=== PATIENT | male | born 1985 | race Caucasian/White ===

== ENCOUNTER 2017-03-05 16:59 | Inpatient (IN) | payer OTHER ==
[~2017-03-05] VITALS: Ht 167.6 cm; Wt 61.7 kg
--- NOTE | 2017-03-05 17:10 | NUR ---
PT TO ED FOR C/C OF DARK URINE, NAUSEA, VOMITING. DENIES ABD PAIN. 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 DENIES FEVERS.
--- NOTE | 2017-03-05 18:24 | ED GI/GU/ABDOMINAL COMPLAINT ---
History of Present Illness General Chief Complaint: General Adult Stated Complaint: PT URINE IS DARK BROWN ,BACK OF LEG FEEL HOT Source: patient Exam Limitations: no limitations Vital Signs & Intake/Output Vital Signs & Intake/Output Vital Signs Date Time Temp Pulse Resp B/P B/P Pulse O2 O2 Flow FiO2 Mean Ox Delivery Rate 03/10 0035 174/100 03/10 0012 174/100 03/09 2241 98.9 63 20 172/100 96 Room Air 03/09 2155 160/100 03/09 1452 98.0 71 18 116/60 96 03/09 0644 98.0 78 18 151/93 99 Room Air ED Intake and Output 03/10 0000 03/09 1200 Intake Total 1600 1250 Output Total 1600 2300 Balance 0 -1050 Intake, IV 1100 800 Intake, Oral 500 450 Output, Urine 1600 2300 Patient 145 lb Weight Weight Standing Scale Measurement Method Allergies Coded Allergies: No Known Allergies (03/05/17) Triage Note: PT TO ED FOR C/C OF DARK URINE, NAUSEA, VOMITING. DENIES ABD PAIN. 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 DENIES FEVERS. Triage Nurses Notes Reviewed? yes HPI: Shaka is a 32 yo m with a significant past medical history presenting to the ED today for dark urine and leg pain. 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 He was out from 5 AM -3pm. He only drank 1 ice tea the entire day. He felt quite thirsty later but did not get an opportunity to get water. At home patient noted he had increased muscle cramps and leg pain. Today it worsened significantly and he noted that he had some very dark brown urine. Patient denies any fever or chills, chest pain, cough, shortness of breath, abdominal pain, nausea, vomiting or diarrhea. Patient denies any falls or trauma to his legs. (TRESSA MATHEW,SARKIS) Reconcile Medications Methadone Hydrochloride (Methadone HCl) 10 MG TABLET 9 TAB PO DAILY OPIATE dose (Reported) (JEF MATHEW,KRISTAN) Past History Travel History Traveled to [place] past 21 day No Medical History Any Pertinent Medical History? 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 No (SARKIS BUSTILLOS MD) Review of Systems Review of Systems Constitutional: Reports: no symptoms. EENTM: Reports: no symptoms. Respiratory: Reports: no symptoms. Cardiovascular: Reports: no symptoms. GI: Reports: no symptoms. Genitourinary: Reports: see HPI. Musculoskeletal: Reports: muscle pain. Skin: Reports: no symptoms. Neurological/Psychological: Reports: no symptoms. Hematologic/Endocrine: Reports: no symptoms. Immunologic/Allergic: Reports: no symptoms. All Other Systems: Reviewed and Negative (SARKIS BUSTILLOS MD) Physical Exam Physical Exam General Appearance: well developed/nourished, no apparent distress, alert, awake , comfortable Head: atraumatic, normal appearance Eyes: Bilateral: normal appearance, PERRL, EOMI, normal inspection. 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 No Severe Sepsis Present: No Septic Shock Present: No (SARKIS BUSTILLOS MD) Progress Differential Diagnosis: ureterolithiasis, urinary retention, urethritis, UTI/ pyelo, rhabdomyolysis, EBONI, electrolyte derangement Plan of Care: Orders Procedure Date/time Status CREATINE PHOSPHOKINASE 03/10 06 Active BASIC ELECTROLYTES PLUS BUN&CR 03/10 0600 Active MAGNESIUM 03/09 0630 Complete CALCIUM 03/09 0630 Complete Lab Add-on Test 03/09 UNK Active Nursing Misc 03/09 UNK Active EKG 03/09 UNK Active Current Medications Sig/Brian Start time Last Medication Dose Stop Time Status Admin Methadone HCl 90 MG DAILY 03/10 1000 UNVr (Dolophine) Potassium Chloride 20 MEQ Q10H 03/09 1145 r 03/10 (KCl 20MEQ in NS 0037 1000ML) Sodium Chloride 1,000 ML (Normal Saline 0.9%) Nicotine 21 MG 2100 03/07 2100 AC 03/09 (Nicoderm) 2106 Polyethylene Glycol 17 GM DAILY 03/06 1000 AC (Miralax) Heparin Sodium 5,000 UNIT Q8 03/06 0600 AC (Porcine) Ondansetron HCl 4 MG Q6P PRN 03/05 2230 AC 03/08 (Zofran) 2032 Oxycodone HCl 5 MG Q6P PRN 03/05 223 AC (Roxicodone) Oxycodone HCl 10 MG Q6P PRN 03/05 2230 AC 03/09 (Roxicodone) 2150 Laboratory Tests 03/09/17 0630: Anion Gap 9, Estimated GFR > 60, BUN/Creatinine Ratio 5.0 L, Calcium 9.1, Magnesium 1.5 L, Creatine Kinase 14008 H Patient is an otherwise well-appearing 32-year-old male presenting to the ED for dark urine and muscle cramps and bilateral legs. No trauma to the legs. Patient was outside in the sun with decreased hydration and now has dark urine. Likely rhabdomyolysis and concerned for acute kidney injury given the dark urination. Patient unable to provide sample at this point in time. Plan to obtain basic blood work and give 2 L of fluid then reassess. After 2 L of fluid, the patient was able to provide a urine sample. Urine is dark brown in color to visual inspection. Plan to send down to the lab for evaluation. Add-on CK was also obtained. Labs significant for several electrolyte derangements. Potassium is within normal limits. CK noted to be above 28,000. Creatinine is 4.9 which is significantly abnormal for this otherwise healthy 32-year-old male. Plan to give 2 more liters of fluid and admitted to the hospital for rhabdomyolysis with EBONI. Patient given morphine for the pain. Patient amenable to admission. Would like to go outside and smoke, however he was offered a nicotine patch which he lightly accepted. (SARKIS BUSTILLOS MD) Initial ED EKG: none (SARKIS BUSTILLOS MD) Departure Departure Time of Disposition: 2104 Disposition: STILL A PATIENT Condition: Stable Clinical Impression Primary Impression: Acute renal failure Qualifiers: Acute renal failure type: unspecified Qualified Code: N17.9 - Acute kidney failure, unspecified Secondary Impressions: Rhabdomyolysis Qualifiers: Rhabdomyolysis type: non-traumatic Qualified Code: M62.82 - Rhabdomyolysis Ruled Out Impressions: EBONI (acute kidney injury) Referrals: PATIENT HAS NO PRIMARY CARE DR (PCP/Family) Departure Forms: Customer Survey General Discharge Information Admission Note Spoke With: CEDRIC BERNSTEIN MD Documentation of Exam: Documentation of any treatments & extenuating circumstances including Concerns Regarding Discharge (functional status, medication knowledge or non-compliance, living conditions, etc.) that warrant an admission rather than observation: This patient requires inpatient hospitalization as he has a new acute kidney failure with several electrolyte derangements. If this patient were discharged at home, his electrolyte derangements could worsen, causing a severe cardiac arrhythmia or even . His kidney failure could worsen causing permanent damage and leading to dialysis. This would result in increasing morbidity and mortality therefore, it is in the best interest of the patient and his healthcare to be admitted for IV hydration and repeat blood work. (SARKIS BUSTILLOS MD) Resident Co-Sign Statement Statement: ED Attending supervision documentation- [] I saw and evaluated the patient. I have also reviewed all the pertinent lab results and diagnostic results. I agree with the findings and the plan of care as documented in the Resident's documentation. [X] I have reviewed the ED Record and agree with the Resident's documentation. [] Additions or exceptions (if any) to the Resident's note and plan are summarized below: [] (JEF MATHEW,KRISTAN) Labs significant for several electrolyte derangements. Potassium is within normal limits. CK noted to be above 28,000. Creatinine is 4.9 which is significantly abnormal for this otherwise healthy 32-year-old male. Plan to give 2 more liters of fluid and admitted to the hospital for rhabdomyolysis with EBONI. Patient given morphine for the pain. Patient amenable to admission. Would like to go outside and smoke, however he was offered a nicotine patch which he lightly accepted. (SARKIS BUSTILLOS MD) Initial ED EKG: none Departure Departure Time of Disposition: 2104 Disposition: STILL A PATIENT Condition: Stable Clinical Impression Primary Impression: Acute renal failure Qualifiers: Acute renal failure type: unspecified Qualified Code: N17.9 - Acute kidney failure, unspecified Secondary Impressions: Rhabdomyolysis Qualifiers: Rhabdomyolysis type: non-traumatic Qualified Code: M62.82 - Rhabdomyolysis Ruled Out Impressions: EBONI (acute kidney injury) Referrals: PATIENT HAS NO PRIMARY CARE DR (PCP/Family) Departure Forms: Customer Survey General Discharge Information Prescriptions: Current Visit Scripts No Known Home Medications Admission Note Spoke With: CEDRIC BERNSTEIN MD Documentation of Exam: Documentation of any treatments & extenuating circumstances including Concerns Regarding Discharge (functional status, medication knowledge or non-compliance, living conditions, etc.) that warrant an admission rather than observation: This patient requires inpatient hospitalization as he has a new acute kidney failure with several electrolyte derangements. If this patient were discharged at home, his electrolyte derangements could worsen, causing a severe cardiac arrhythmia or even . His kidney failure could worsen causing permanent damage and leading to dialysis. This would result in increasing morbidity and mortality therefore, it is in the best interest of the patient and his healthcare to be admitted for IV hydration and repeat blood work.
--- NOTE | 2017-03-05 19:08 | NUR ---
LAV & GOLD TOP TUBES SENT TO LAB
[2017-03-05 19:33] LABS: ABSOLUTE BASOPHIL COUNT 0.1 /CUMM (0.0-0.2); ABSOLUTE EOSINOPHIL COUNT 0.1 /CUMM (0.0-0.7); ABSOLUTE GRANULOCYTE CT 12.1 /CUMM (1.4-6.5); ABSOLUTE LYMPH COUNT 2.2 /CUMM (1.2-3.4); BASOPHIL % 0.4 % (0.0-2.0); EOSINOPHIL % 0.5 % (0-5); HEMATOCRIT 51.5 % (42-52); MEAN CORPUSCULAR HGB 30.8 PG (27.0-31.0); MEAN CORPUSCULAR HGB CONC 33.3 G/DL (33.0-37.0); MEAN CORPUSCULAR VOLUME 92.3 FL (80.0-94.0); MEAN PLATELET VOLUME 8.7 FL (7.4-10.4); PLATELET COUNT 230 /CUMM (130-400); RBC DISTRIBUTION WIDTH 13.6 % (11.5-14.5); RED BLOOD CELL CT 5.57 /CUMM (4.70-6.10); WHITE BLOOD CELL COUNT 15.5 /CUMM (4.8-10.8)
[2017-03-05 19:39] LABS: GRANULOCYTE % 78.1 % (42.2-75.2)
--- NOTE | 2017-03-05 20:20 | NUR ---
URINE TRIO SENT TO LAB.
--- NOTE | 2017-03-05 21:00 | NUR ---
PATIENT RESTING QUIETLY IN THE HALLWAY. IVF CONTINUE.
--- NOTE | 2017-03-05 22:01 | History & Physical ---
WENDY MATHEW,[facility] 03/05/17 2159: General Information and HPI MD Statement: I have seen and personally examined TRAVIS MACEDO and documented this H&P. The patient is a 32 year old M who presented with a patient stated chief complaint of dark urine. Source of Information: patient Exam Limitations: no limitations History of Present Illness: Mr. Macedo is a 32 y/o M with no significant PMHx who presents with nausea, vomiting, weakness, dark urine and bilateral leg pain. 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 Prior to the onset of symptoms he had been working in the heat with little fluid intake for several hours. He came home to rest and could not leave the bed until his current presentation to the ED. He has had multiple episodes of nonbloody nonbilious emesis and has not been able to hold anything. He has been feeling weak during this time and his bilateral thighs have been painful. He noted dark urine, decrease in his urinary output and some dysuria as well. ROS is also positive for abdominal pain which he attributes to the emesis. He denies fever, chills, chest pain, shortness of breath. He denies similar episodes in the past. Patient is healthy and does not take any medications. He admits to smoking 4-5 cigarettes per day and marijuana use every other day. 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 Psychosocial History Where do you live? Home Primary Language: Pashto Smoking Status: Current Everyday Smoker (4-5 Cigarettes Daily, Since 14) ETOH Use: denies use Illicit Drug Use: marijuana Functional Ability ADLs Independent: dressing, eating, toileting, bathing. Ambulation: independent IADLs Independent: shopping, housework, finances, food prep, telephone, transportation , medication admin. Employment History Employment Employed Profession/Employer [employer] Review of Systems Review of Systems Constitutional: Reports: weakness. Denies: chills, fever. EENTM: Reports: no symptoms. Cardiovascular: Reports: no symptoms. Denies: chest pain. Respiratory: Reports: no symptoms. Denies: short of breath. GI: Reports: abdominal pain, nausea, vomiting. Genitourinary: Reports: see HPI (dark urine and decreased UOP), dysuria. Musculoskeletal: Reports: muscle pain. Skin: Reports: no symptoms. Neurological/Psychological: Reports: no symptoms. Hematologic/Endocrine: Reports: no symptoms. Immunologic/Allergic: Reports: no symptoms. All Other Systems: Reviewed and Negative Exam & Diagnostic Data Last 24 Hrs of Vital Signs/I&O Vital Signs Date Time Temp Pulse Resp B/P B/P Pulse O2 O2 Flow FiO2 Mean Ox Delivery Rate 03/05 2226 94 20 130/77 100 Room Air 03/05 1707 98.9 104 15 121/93 95 Room Air Room Air Intake & Output 03/06 0800 03/06 0000 03/05 1600 Intake Total 6050 Output Total Balance 6050 Intake, IV 6050 Patient 61.235 kg Weight Weight Reported by Patient Measurement Method Physical Exam General Appearance Alert, Oriented X3, No Acute Distress Skin No Rashes HEENT Atraumatic, Mucous Membr. moist/pink Neck Supple Cardiovascular Regular Rate, Normal S1, Normal S2, No Murmurs, Gallops, Rubs Lungs Clear to Auscultation Abdomen Soft, No Tenderness, Positive Bowel Sounds Neurological Bilateral Lower Extremities with 5/5 Strength Extremities No Clubbing, No Cyanosis, No Edema, Bilateral Thighs Tender to Touch , No Swelling or Inflammation Last 24 Hrs of Labs/Luke: Laboratory Tests 03/05/17 2003: Urine Color YEL, Urine Clarity CLEAR, Urine pH 5.5, Ur Specific Watson 1.020, Urine Protein 100 H, Urine Ketones TRACE H, Urine Nitrite NEG, Urine Bilirubin NEG@ICTO, Urine Urobilinogen 1.0, Ur Leukocyte Esterase NEG, Ur Microscopic SEDIMENT EXAMINED, Urine RBC 3-5, Urine WBC 5-10 H, Ur Epithelial Cells FEW, Urine Bacteria MANY H, Hyaline Casts 1-3 H, Granular Casts 5-10 H, Urine Hemoglobin LARGE H, Urine Glucose NEG 03/05/172002: Urine Opiates Screen < 100.00, Methadone Screen > 735 H, Barbiturate Screen < 60, Ur Phencyclidine Scrn 6.60, Amphetamines Screen < 100, U Benzodiazepines Scrn > 800 H, Urine Cocaine Screen < 50, Urine Cannabis Screen > 80.00 H, Urine Osmolality 231 L, Ur Random Creatinine 292.0, Ur Random Sodium 26 L, Ur Random Potassium 31.6, Fraction Sodium Excret 0.3 03/05/174: Anion Gap 20 H, Estimated GFR 14 L, BUN/Creatinine Ratio 6.5 L, Glucose 97, Serum Osmolality 288, Calcium 10.3 H, Total Bilirubin 1.4 H, Direct Bilirubin 0.6 H, AST 682 H, ALT 140 H, Alkaline Phosphatase 87, Creatine Kinase 00445 H, Total Protein 8.9 H, Albumin 5.5 H, Globulin 3.4, Albumin/Globulin Ratio 1.6, CBC w Diff NO MAN DIFF REQ, RBC 5.57, MCV 92.3, MCH 30.8, RDW 13.6, MPV 8.7 , Gran % 78.1 H, Lymphocytes % 14.3 L, Monocytes % 6.7, Eosinophils % 0.5, Basophils % 0.4, Absolute Granulocytes 12.1 H, Absolute Lymphocytes 2.2, Absolute Monocytes 1.0 H, Absolute Eosinophils 0.1, Absolute Basophils 0.1, PUBS MCHC 33.3, Hepatitis A IgM Ab Pending, Hep Bs Antigen Pending, Hep B Core IgM Ab Conf Pending, Hepatitis C Antibody Pending, Acetaminophen < 10.0 L Assessment/Plan Assessment: Mr. Macedo is a 32 y/o M with no significant PMHx who presents with nausea, vomiting, weakness, dark urine and bilateral leg pain. #Rhabdomyolysis: Marked elevation in CPK (77113), dark urine, leg tenderness/ weakness and large hemoglobin in the urine consistent with rhabdomyolysis. Inciting factor is likely physical exertion in the heat with little fluid intake. No stigmata of dermatomyositis appreciable on exam. S/p 1 L bolus of NS x5. * Admit to General Medicine. * Continue aggressive IV hydration with NS @ 200 cc/hr. * Zofran 4 mg IV Q6H PRN for nausea/vomiting. * Repeat CPK in the AM. * Strict I/Os. #EBONI: BUN/Cr 32/4.9 on admission. Likely secondary to rhabdomyolysis. * Continue aggressive IV hydration. * Repeat BMP in the AM. * If kidney function does not improve, consider further workup including renal US to rule out obstruction. #Transaminitis: AST/ALT 682/140 on admission. Total bilirubin and direct bilirubin slightly elevated as well, 1.4 and 0.6 respectively. Alkaline phosphatase WNL. Likely secondary to rhabdomyolysis. * Check Tylenol level and hepatitis panel to rule out other causes of transaminitis. * Repeat LFTs in the AM. #Nicotine dependence: * Nicotine patch 21 mg administered. Diet: Regular Pain: Oxycodone 10 mg PO Q6H PRN for severe pain (scale 7-10) Oxycodone 5 mg PO Q6H PRN for moderate pain (scale 4-6) DVT PPx: HSQ and ALPs CODE: FULL As Ranked By This Provider Problem List: 1. Rhabdomyolysis Qualifiers Rhabdomyolysis type: non-traumatic Qualified Code: M62.82 - Rhabdomyolysis 2. EBONI (acute kidney injury) 3. Transaminitis 4. Nicotine dependence Core Measures/Miscellaneous Acute Coronary Syndrome ACS Diagnosis: No Cerebrovascular Accident CVA/TIA Diagnosis: No Congestive Heart Failure CHF Diagnosis: No VTE (View Protocol) VTE Risk Factors: Acute medical illness, Smoking [facility] prophylaxis d/t: No contraindications No VTE Pharm Prophylaxis d/t: No contraindications VTE Diagnosis: No VTE Type: NONE VTE Confirmed by (Test): NONE Sepsis (View Protocol) Severe Sepsis Present: No Septic Shock Septic Shock Present: No Miscellaneous Documentation Attending Case Discussed With: CEDRIC BERNSTEIN MD Primary Care Physician: PATIENT HAS NO PRIMARY CARE DR Patient sees these Specialists None Level of Patient Care: General Medicine DEYVI SAL 03/05/17 2250: Resident Review Statement Resident Statement: examined this patient, discussed with summer internship, agreed with summer internship, amended to note Other Findings: Patient denies any fever or chills, he reports mild burning sensation especially when he was passing small amount of concentrated brown urine, he has no chest pain palpitation or shortness of breath, he reports mild abdominal wall tenderness due to heaving. On arrival the patient was afebrile 98.9 tachycardic at 104, respiration of 15 blood pressure 121/93 and saturating 95% on room air Physical examination showed a patient who is seated comfortably on the bed as late oriented time place and person were present not in any acute distress Chest clear lungs bilaterally, heart normal S1-S2 no murmurs, abdomen normal contour moving with respiration no any palpable mass, extremities no edema cyanosis or clubbing he has tenderness on the hamstrings bilaterally, she has no pseudomyositis stigmata. 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 He has tenderness on the muscles and has no stigmata suggestive of pseudomyositis. In the ER the patient received 5 L fluid boluses and reported to start passing large amount of urine. Rhabdomyolysis Acute kidney injury Hyponatremia Transaminitis Polysubstance abuse Admit patient to general medicine floor Continue with fluid at 200 mL per hour Repeat electrolytes,LFTs and CPK a.m. Strict I&O's Start regular diet Zofran 4 mg every 6 when necessary for nausea Avoid nephrotoxic medications Patient is full code Pain management CEDRIC BERNSTEIN 03/06/17 0231: Attending MD Review Statement Attending Statement Attending MD Statement: examined this patient, discuss w/resident/PA/IT TECHNICIAN, agreed w/resident/PA/IT TECHNICIAN, reviewed EMR data (avail), reviewed images, amended to note Attending Assessment/Plan: CC: Dark-colored urine, leg pain PMH: None Patient works in [place], he has been working long hours on Friday and Friday, he developed severe pain in his legs on Friday, felt very sick so he took off went home and rested but he had severe nausea, vomiting 6 times, nonbloody, nonbilious and then noticed dark colored urine. He also noticed pain in his thighs left more than right. He did not have much fluid intake while working. He admits occasional use of marijuana and use of Xanax last week. Vitals: Afebrile, pulse 104, RR 15, blood pressure 121/93, saturating well on room air. On examination: A O 3, cooperative, no acute distress, neck supple, JVD normal, no lymphadenopathy, mucosa dry, no focal neurological deficit, thighs tender to touch, swelling or inflammation, no dependent edema, no obvious skin rashes or inflammation CVS: S1-S2, RRR. RS: Clear to auscultate bilaterally. Abdomen: Soft , NT, ND, bowel sounds present. Labs: WBC 15.5, neutrophils 78%, hemoglobin 17.1, bicarbonate 23, BUN 32, creatinine 4.9, calcium 10.3, bilirubin 1.4, AST 682, ALT 140, alkaline phosphatase 87, CK 28,634, total protein 8.9, albumin 5.5, UA positive for ketones. A and P 32-year-old male with no significant past medical history came to ER after working outside in hot weather for long hours, without adequate hydration. He comes with dark-colored urine and pain in thighs. + Rhabdomyolysis + Acute kidney injury secondary to rhabdomyolysis and dehydration + Dehydration + Transaminitis + Reactive leukocytosis - Admit to general medicine - Continue aggressive hydration with normal saline - Check Tylenol level, viral hepatitis panel - Adequate pain control with opiates - DVT prophylaxis with heparin - Repeat CBC, BMP, LFT, CPK in a.m. - Strict I's and O's
--- NOTE | 2017-03-05 23:29 | NUR ---
REPORT TO CHARLIE MARR
--- NOTE | 2017-03-06 00:08 | NUR ---
ASSUMED CARE OF PT == AWAITING GEN MED BED. PER PT AND EMAR LITER #6 INFUSING AT 200ML/HR TAKING ICE CHIPS PO.
--- NOTE | 2017-03-06 01:11 | NUR ---
REPORT CALLED TO RN
[2017-03-06 01:30] VITALS: BP 120/78
--- NOTE | 2017-03-06 02:35 | Admission Certification ---
Admission Certification Certification Statement - As attending physician, I certify that at the time of - admission, based on clinical presentation, severity of - symptoms, need for further diagnostic testing and - therapeutic interventions, and risk of adverse outcomes - without in-hospital treatment, in my clinical assessment, - this patient requires an acute hospital stay for a minimum - of two nights or longer. I have also considered psychsocial - factors such as support system, advanced age, financial - issues, cognitive issues, and failed out-patient treatments, - past re-admission history, safety of patient, and lack of - compliance as applicable. Specific rationale supporting this admission is: rhabdomyolysis and acute kidney injury
[2017-03-06 07:12] VITALS: BP 118/82
--- NOTE | 2017-03-06 07:46 | PN- Housestaff ---
Subjective Follow-up For: Rhabdomyolysis Acute kidney injury Transaminitis Methadone, cannibase and benzo abuse Subjective: Patient was seen and examined this morning, alert, no acute distress. Patient denied any shortness of breath, chest pain, palpitation. Denied abdominal pain. Reported some nausea, will try to eat breakfast. Reported bilateral thigh pain. Review of Systems Constitutional: Reports: see HPI. Objective Last 24 Hrs of Vital Signs/I&O Vital Signs Date Time Temp Pulse Resp B/P B/P Pulse O2 O2 Flow FiO2 Mean Ox Delivery Rate 03/06 1429 98.1 81 20 122/70 95 Room Air 03/06 0712 98.0 97 20 118/82 99 Room Air 03/06 0130 98.2 93 20 120/78 99 Room Air 03/05 2226 94 20 130/77 100 Room Air 03/05 1707 98.9 104 15 121/93 95 Room Air Room Air Intake & Output 03/06 1600 03/06 0800 03/06 0000 Intake Total 1800 1000 6050 Output Total 700 Balance 1100 1000 6050 Intake, IV 1600 1000 6050 Intake, Oral 200 Number 0 Bowel Movements Output, Urine 700 Patient 65.317 kg 61.235 kg Weight Weight Reported by Patient Reported by Patient Measurement Method Physical Exam General Appearance: Alert, Oriented X3, Cooperative, No Acute Distress Skin: No Rashes, No Breakdown, No Significant Lesion Skin Temp/Moisture Exam: Warm/Dry HEENT: Atraumatic, PERRLA, EOMI, Mucous Membr. moist/pink Neck: Supple Cardiovascular: Regular Rate, Normal S1, Normal S2, No Murmurs Lungs: Clear to Auscultation, Normal Air Movement Abdomen: Normal Bowel Sounds, Soft, bilateral upper quadrant abdominal tenderness Neurological: Normal Gait, Normal Speech, Strength at 5/5 X4 Ext, Normal Tone, Sensation Intact, Cranial Nerves 3-12 NL, Reflexes 2+ Extremities: No Clubbing, No Cyanosis, No Edema, Normal Pulses, No Tenderness/ Swelling, tenderness over bilateral thigh Assessment/Plan Assessment: Mr. Durham is a 32 y/o M with no significant PMHx who presented with nausea, vomiting, weakness and dark urine. #Rhabdomyolysis: Marked elevation in CPK (27010), dark urine, leg tenderness/ weakness and large hemoglobin in the urine consistent with rhabdomyolysis. Inciting factor is likely physical exertion in the heat with little fluid intake. No stigmata of dermatomyositis appreciable on exam. S/p 1 L bolus of NS x5. * Continue IV hydration with NS @ 200 cc/hr. * Repeated CPK this morning is elevated, will recheck CPK in the afternoon if continue to rise will consider compartment pressure measurement to rule out compartment syndrome as patient has bilateral thigh pain and tenderness. * Zofran 4 mg IV Q6H PRN for nausea/vomiting. #EBONI: BUN/Cr 32/4.9 on admission. Likely secondary to rhabdomyolysis. * Continue aggressive IV hydration. * Improved significantly with IV hydration 16/1.3 #Transaminitis: AST/ALT 682/140 on admission. Total bilirubin and direct bilirubin slightly elevated as well, 1.4 and 0.6 respectively. Alkaline phosphatase WNL. Likely secondary to rhabdomyolysis. * Urine toxicology positive for benzo, Cannabis, methadone. Negative for acetaminophen * GI consultation was obtained, recommendation to follow daily liver function test * Recommendation to further walk up increased liver function test as an outpatient if it persistently elevated after resolution of CPK * Will obtain abdominal ultrasound #Nicotine dependence: * Nicotine patch 21 mg #Methadone dependence * Methadone dose of 90 mg daily confirmed via [facility] Diet: Regular Pain: Oxycodone 10 mg PO Q6H PRN for severe pain (scale 7-10) Oxycodone 5 mg PO Q6H PRN for moderate pain (scale 4-6) DVT PPx: HSQ and ALPs CODE: FULL Problem List: 1. Rhabdomyolysis 2. EBONI (acute kidney injury) 3. Transaminitis 4. Nicotine dependence 5. Acute renal failure Pain Ratin Pain Location: Bilateral thigh pain and tenderness Pain Goal: Pain 4 or less Pain Plan: Moderate to severe pain pathway Tomorrow's Labs & Rationales: BMP, LFT, CPK
--- NOTE | 2017-03-06 07:58 | NUR ---
NURSING NOTE: PT REPORTS TO THIS RN "I TAKE 90MG OF METHADONE DAILY, MY LAST DOSE WAS FRIDAY, I WENT YESTERDAY BUT I WAS SO DEHYDRATD THAT I COULDNT PEE TO GIVE THEM A SAMPLE. I GO TO THE CLINIC in [place]," faisal pandey called and made aware.
[2017-03-06 08:44] LABS: ABSOLUTE BASOPHIL COUNT 0 /CUMM (0.0-0.2); ABSOLUTE EOSINOPHIL COUNT 0 /CUMM (0.0-0.7); MEAN PLATELET VOLUME 9.4 FL (7.4-10.4); RBC DISTRIBUTION WIDTH 14.3 % (11.5-14.5); WHITE BLOOD CELL COUNT 8.5 /CUMM (4.8-10.8)
--- NOTE | 2017-03-06 08:45 | Event Note ---
Event Note Event Note: we contacted [facility] nad confirmed the Methadone dose of 90 mg daily. Last dose was given at 03/04/2017.
[2017-03-06 09:12] LABS: ABSOLUTE GRANULOCYTE CT 5.5 /CUMM (1.4-6.5); ABSOLUTE LYMPH COUNT 2.3 /CUMM (1.2-3.4); ABSOLUTE MONOCYTE COUNT 0.7 /CUMM (0.10-0.60); BASOPHIL % 0.3 % (0.0-2.0); EOSINOPHIL % 0.5 % (0-5); GRANULOCYTE % 64.5 % (42.2-75.2); MEAN CORPUSCULAR HGB 31.4 PG (27.0-31.0); MEAN CORPUSCULAR HGB CONC 33.7 G/DL (33.0-37.0); MEAN CORPUSCULAR VOLUME 93.1 FL (80.0-94.0); PLATELET COUNT 153 /CUMM (130-400); RED BLOOD CELL CT 4.28 /CUMM (4.70-6.10)
[2017-03-06 09:28] LABS: HEMATOCRIT 39.9 % (42-52)
--- NOTE | 2017-03-06 10:29 | NUR ---
NURSING NOTE: PT HAD A FEW BITES OF A VILLA, EGG AND CHEESE SANDWICH FROM HOME AROUND 0930AM; ABDOMINAL US ORDERED BY MD PT TO BE NPO UNTIL AFTER US AT 1500PM. PT UPDATED AND AWARE, NPO SIGN PLACED ABOVE BED.
--- NOTE | 2017-03-06 13:28 | PN- Att Addend ---
Attending Addendum Attending Brief Note Patient seen and examined, overall feeling better. Denies any pain in the lower extremities now. Creatinine improved but CK was still high. Vital Signs Date Time Temp Pulse Resp B/P B/P Pulse O2 O2 Flow FiO2 Mean Ox Delivery Rate 03/06 0712 98.0 97 20 118/82 99 Room Air 03/06 0130 98.2 93 20 120/78 99 Room Air 03/05 2226 94 20 130/77 100 Room Air 03/05 1707 98.9 104 15 121/93 95 Room Air Room Air on exam; aox3, nad. cv; s1, s2, rrr resp; clear abd; soft, tender in luq, bs+ ext; no edema. ms: no tenderness in le. Laboratory Tests 03/06 Chemistry Sodium (137 - 145 mmol/L) 142 Potassium (3.5 - 5.1 mmol/L) 3.7 Chloride (98 - 107 mmol/L) 112 H Carbon Dioxide (22 - 30 mmol/L) 21 L Anion Gap (5 - 16) 9 BUN (9 - 20 mg/dL) 16 Creatinine (0.7 - 1.2 mg/dL) 1.3 H Estimated GFR (>60 ml/min) > 60 BUN/Creatinine Ratio (7 - 25 %) 12.3 Total Bilirubin (0.2 - 1.3 mg/dL) 1.3 Direct Bilirubin (< 0.4 mg/dL) 0.4 AST (17 - 59 U/L) 872 H ALT (21 - 72 U/L) 183 H Alkaline Phosphatase (< 127 U/L) 54 Creatine Kinase (55 - 170 U/L) > 48045 H Total Protein (6.3 - 8.2 g/dL) 6.0 L Albumin (3.5 - 5.0 g/dL) 3.5 Hematology CBC w Diff NO MAN DIFF REQ WBC (4.8 - 10.8 /CUMM) 8.5 RBC (4.70 - 6.10 /CUMM) 4.28 L Hgb (14.0 - 18.0 G/DL) 13.4 L Hct (42 - 52 %) 39.9 L MCV (80.0 - 94.0 FL) 93.1 MCH (27.0 - 31.0 PG) 31.4 H RDW (11.5 - 14.5 %) 14.3 Plt Count (130 - 400 /CUMM) 153 MPV (7.4 - 10.4 FL) 9.4 Gran % (42.2 - 75.2 %) 64.5 Lymphocytes % (20.5 - 51.1 %) 26.7 Monocytes % (1.7 - 9.3 %) 8.0 Eosinophils % (0 - 5 %) 0.5 Basophils % (0.0 - 2.0 %) 0.3 Absolute Granulocytes (1.4 - 6.5 /CUMM) 5.5 Absolute Lymphocytes (1.2 - 3.4 /CUMM) 2.3 Absolute Monocytes (0.10 - 0.60 /CUMM) 0.7 H Absolute Eosinophils (0.0 - 0.7 /CUMM) 0 Absolute Basophils (0.0 - 0.2 /CUMM) 0 PUBS MCHC (33.0 - 37.0 G/DL) 33.7 Urines Urine Color (YEL,AMB,STR) YEL Urine Clarity (CLEAR) CLEAR Urine pH (5.0 - 8.0) 5.5 Ur Specific [place] (1.001 - 1.035) 1.020 Urine Protein (NEG,<30 MG/DL) 100 H Urine Ketones (NEG) TRACE H Urine Nitrite (NEG) NEG Urine Bilirubin (NEG) NEG@ICTO Urine Urobilinogen (0.1 - 1.0 EU/dl) 1.0 Ur Leukocyte Esterase (NEG) NEG Ur Microscopic SEDIMENT EXAMINED Urine RBC (0 - 5 /HPF) 3-5 Urine WBC (0 - 2 /HPF) 5-10 H Ur Epithelial Cells (NONE,FEW) FEW Urine Bacteria (NEG/NONE) MANY H Hyaline Casts (0/LPF) 1-3 H Granular Casts (NONE /LPF) 5-10 H Urine Hemoglobin (NEG) LARGE H Urine Glucose (N MG/DL) NEG 03/05 190 Chemistry Sodium (137 - 145 mmol/L) 136 L Potassium (3.5 - 5.1 mmol/L) 3.7 Chloride (98 - 107 mmol/L) 93 L Carbon Dioxide (22 - 30 mmol/L) 23 Anion Gap (5 - 16) 20 H BUN (9 - 20 mg/dL) 32 H Creatinine (0.7 - 1.2 mg/dL) 4.9 H Estimated GFR (>60 ml/min) 14 L BUN/Creatinine Ratio (7 - 25 %) 6.5 L Glucose (65 - 99 mg/dL) 97 Serum Osmolality (285 - 295 MOSM/KG) 288 Calcium (8.4 - 10.2 mg/dL) 10.3 H Total Bilirubin (0.2 - 1.3 mg/dL) 1.4 H Direct Bilirubin (< 0.4 mg/dL) 0.6 H AST (17 - 59 U/L) 682 H ALT (21 - 72 U/L) 140 H Alkaline Phosphatase (< 127 U/L) 87 Creatine Kinase (55 - 170 U/L) 37006 H Total Protein (6.3 - 8.2 g/dL) 8.9 H Albumin (3.5 - 5.0 g/dL) 5.5 H Globulin (1.9 - 4.2 gm/dL) 3.4 Albumin/Globulin Ratio (1.1 - 2.2 %) 1.6 Hematology CBC w Diff NO MAN DIFF REQ WBC (4.8 - 10.8 /CUMM) 15.5 H RBC (4.70 - 6.10 /CUMM) 5.57 Hgb (14.0 - 18.0 G/DL) 17.1 Hct (42 - 52 %) 51.5 MCV (80.0 - 94.0 FL) 92.3 MCH (27.0 - 31.0 PG) 30.8 RDW (11.5 - 14.5 %) 13.6 Plt Count (130 - 400 /CUMM) 230 MPV (7.4 - 10.4 FL) 8.7 Gran % (42.2 - 75.2 %) 78.1 H Lymphocytes % (20.5 - 51.1 %) 14.3 L Monocytes % (1.7 - 9.3 %) 6.7 Eosinophils % (0 - 5 %) 0.5 Basophils % (0.0 - 2.0 %) 0.4 Absolute Granulocytes (1.4 - 6.5 /CUMM) 12.1 H Absolute Lymphocytes (1.2 - 3.4 /CUMM) 2.2 Absolute Monocytes (0.10 - 0.60 /CUMM) 1.0 H Absolute Eosinophils (0.0 - 0.7 /CUMM) 0.1 Absolute Basophils (0.0 - 0.2 /CUMM) 0.1 PUBS MCHC (33.0 - 37.0 G/DL) 33.3 Serology Hepatitis A IgM Ab (NONREACTIVE) NONREACTIVE Hep Bs Antigen (NONREACTIVE) NONREACTIVE Hep B Core IgM Ab Conf (NONREACTIVE) NONREACTIVE Hepatitis C Antibody (NONREACTIVE) NONREACTIVE Toxicology Urine Opiates Screen (>2000 NG/ML) < 100.00 Methadone Screen (>300 NG/ML) > 735 H Acetaminophen (10.0 - 30.0 ug/mL) < 10.0 L Barbiturate Screen (>200 NG/ML) < 60 Ur Phencyclidine Scrn (>25 NG/ML) 6.60 Amphetamines Screen (>1000 NG/ML) < 100 U Benzodiazepines Scrn (>200 NG/ML) > 800 H Urine Cocaine Screen (>300 NG/ML) < 50 Urine Cannabis Screen (>50 NG/ML) > 80.00 H Urines Urine Osmolality (300 - 1000 MOSM/KG) 231 L Ur Random Creatinine (mg/dL) 292.0 Ur Random Sodium (30 - 90 mmol/L) 26 L Ur Random Potassium (mmol/L) 31.6 Fraction Sodium Excret (<1% %) 0.3 A/P; 32-year-old male with no significant past history who was admitted with acute renal failure, dehydration, rhabdomyolysis. Creatinine improved after IV hydration with CK remains elevated. Will repeat the levels later this often note and if remain high then we have to check compartment pressures for the lower extremities. Patient denies any pain currently. There is no history of any injury. Also he had abnormal LFTs which partly could be due to the rhabdomyolysis. Patient did complain of some abdominal pain and he's tender in the left upper quadrant. Will obtain abdominal ultrasound and GI will be consulted. Pt on chronic methadone. DVT px; hep sq.
--- NOTE | 2017-03-06 14:12 | Cons- Gastroenterology ---
General Information and HPI Consulting Request Date of Consult: 03/06/17 Requested By: CEDRIC BERNSTEIN MD Reason for Consult: Increased LFTs. Nausea and vomiting. Source of Information: patient Exam Limitations: no limitations History of Present Illness: Mr. Durham is a 32-year-old male with no significant previous medical history who presented to [facility] yesterday with complaints of nausea vomiting abdominal pain and was ultimately admitted with a diagnosis of rhabdomyolysis based on elevated CPK. The rhabdomyolysis has been attributed to extensive physical activity in the heat. He was found to have an elevated CPK of greater than 32,000 and he also had some renal insufficiency. For the past 1-2 days he has had some nausea associated with bilious vomiting. He has some abdominal discomfort from the retching, but he is without any significant abdominal pain with eating. He also denies any heartburn and he has not had any hematemesis. He notes that his urine has been dark, but his bowel movements have been normal and he has been without any júnior-colored stool, bright blood per rectum or melena. He was admitted to the medical service last night and aggressively hydrated and given antiemetics for his nausea and vomiting. He has not had any significant nausea or vomiting since being admitted to the hospital. Allergies/Medications Allergies: Coded Allergies: No Known Allergies (03/05/17) Home Med List: Methadone Hydrochloride (Methadone HCl) 10 MG TABLET 9 TAB PO DAILY OPIATE dose (Reported) Current Medications: Current Medications Sig/Brian Start time Last Medication Dose Route Stop Time Status Admin Heparin Sodium 5,000 UNIT Q8 03/06 0600 AC (Porcine) SC Methadone HCl 90 MG ONCE ONE 03/06 0900 DC 03/06 PO 03/06 0901 0919 Morphine Sulfate 6 MG ONCE ONE 03/05 2115 DC 03/05 IV 03/05 Morphine Sulfate 0 .STK-MED ONE 03/05 2113 DC .ROUTE Nicotine 0 .STK-MED ONE 03/05 2109 DC TOP Nicotine 21 MG DAILY 03/05 2059 AC 03/05 TOP 2110 Ondansetron HCl 4 MG Q6P PRN 03/05 2230 AC IV Ondansetron HCl 4 MG ONCE ONE 03/05 1945 DC 03/05 IV 03/05 Ondansetron HCl 0 .STK-MED ONE 03/05 1933 DC .ROUTE Oxycodone HCl 5 MG Q6P PRN 03/05 2230 AC PO Oxycodone HCl 10 MG Q6P PRN 03/05 2230 AC 03/06 PO 0750 Patient Medication 1 ED .STK-MED ONE 03/06 1411 DC Teaching ED 03/06 1412 Polyethylene Glycol 17 GM DAILY 03/06 1000 AC PO Sodium Chloride 1,000 ML Q6H 03/05 2215 AC 03/06 IV 1234 Sodium Chloride 1,000 ML BOLUS ONE 03/05 2115 DC 03/05 IV 03/05 2214 2110 Sodium Chloride 1,000 ML BOLUS ONE 03/05 2100 DC 03/05 IV 03/05 215 211 Sodium Chloride 1,000 ML BOLUS ONE 03/05 2000 DC 03/05 IV 03/05 Sodium Chloride 1,000 ML BOLUS ONE 03/05 1845 DC 03/05 IV 03/05 1944 185 Sodium Chloride 1,000 ML BOLUS ONE 03/05 1845 DC 03/05 IV 03/05 Past History Travel History Traveled to [place] past 21 day No Medical History Blood Transfusion Hx: No Neurological: NONE EENT: NONE Cardiovascular: NONE Respiratory: NONE Gastrointestinal: NONE Hepatic: NONE Renal: NONE Musculoskeletal: NONE Psychiatric: NONE Endocrine: NONE Blood Disorders: NONE Cancer(s): NONE 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 Psychosocial History Where Do You Live? Home Services at Home: None Primary Language: Cypriot Smoking Status: Current Everyday Smoker (4-5 Cigarettes Daily, Since ) ETOH Use: denies use Illicit Drug Use: marijuana Functional Ability ADLs Independent: dressing, eating, toileting, bathing. Ambulation: independent IADLs Independent: shopping, housework, finances, food prep, telephone, transportation , medication admin. Employment History Employment: Employed Profession/Employer: [employer] Review of Systems Review of Systems Constitutional: Reports: malaise, weakness. Denies: fever. EENTM: Denies: no symptoms. Cardiovascular: Denies: no symptoms. Respiratory: Denies: no symptoms. GI: Reports: see HPI. Genitourinary: Reports: see HPI (dark urine). Musculoskeletal: Reports: joint pain, muscle pain. Denies: muscle stiffness, neck pain. Skin: Denies: no symptoms. Neurological/Psychological: Denies: no symptoms. Hematologic/Endocrine: Denies: no symptoms. Immunologic/Allergic: Denies: no symptoms. All Other Systems: Reviewed and Negative Exam & Diagnostic Data Vital Signs and I&O Vital Signs Date Time Temp Pulse Resp B/P B/P Pulse O2 O2 Flow FiO2 Mean Ox Delivery Rate 03/06 712 98.0 97 20 118/82 99 Room Air 03/06 0130 98.2 93 20 120/78 99 Room Air 03/05 2226 94 20 130/77 100 Room Air 03/05 1707 98.9 104 15 121/93 95 Room Air Room Air Intake & Output 03/06 0400 03/05 0400 03/04 0400 Intake Total 1000 6050 Output Total Balance 1000 6050 Intake, IV 1000 6050 Patient 144 lb 137 lb Weight Weight Reported by Patient Measurement Method Physical Exam General Appearance: well developed/nourished, no apparent distress, alert, awake , comfortable Head: atraumatic, normal appearance Eyes: Bilateral: normal appearance. Ears, Nose, Throat: normal pharynx, normal ENT inspection Neck: normal inspection, supple, full range of motion Respiratory: normal breath sounds, chest non-tender, no respiratory distress Cardiovascular: regular rate/rhythm Gastrointestinal: normal bowel sounds, soft, non-tender, no organomegaly Back: normal inspection, normal range of motion Extremities: normal inspection, no edema Neurologic/Psych: no motor/sensory deficits, awake, alert, oriented x 3 Skin: intact, normal color, warm/dry Results Pertinent Lab Results: Laboratory Tests 03/06 Chemistry Sodium (137 - 145 mmol/L) 142 Potassium (3.5 - 5.1 mmol/L) 3.7 Chloride (98 - 107 mmol/L) 112 H Carbon Dioxide (22 - 30 mmol/L) 21 L Anion Gap (5 - 16) 9 BUN (9 - 20 mg/dL) 16 Creatinine (0.7 - 1.2 mg/dL) 1.3 H Estimated GFR (>60 ml/min) > 60 BUN/Creatinine Ratio (7 - 25 %) 12.3 Total Bilirubin (0.2 - 1.3 mg/dL) 1.3 Direct Bilirubin (< 0.4 mg/dL) 0.4 AST (17 - 59 U/L) 872 H ALT (21 - 72 U/L) 183 H Alkaline Phosphatase (< 127 U/L) 54 Creatine Kinase (55 - 170 U/L) > 34505 H Total Protein (6.3 - 8.2 g/dL) 6.0 L Albumin (3.5 - 5.0 g/dL) 3.5 Hematology CBC w Diff NO MAN DIFF REQ WBC (4.8 - 10.8 /CUMM) 8.5 RBC (4.70 - 6.10 /CUMM) 4.28 L Hgb (14.0 - 18.0 G/DL) 13.4 L Hct (42 - 52 %) 39.9 L MCV (80.0 - 94.0 FL) 93.1 MCH (27.0 - 31.0 PG) 31.4 H RDW (11.5 - 14.5 %) 14.3 Plt Count (130 - 400 /CUMM) 153 MPV (7.4 - 10.4 FL) 9.4 Gran % (42.2 - 75.2 %) 64.5 Lymphocytes % (20.5 - 51.1 %) 26.7 Monocytes % (1.7 - 9.3 %) 8.0 Eosinophils % (0 - 5 %) 0.5 Basophils % (0.0 - 2.0 %) 0.3 Absolute Granulocytes (1.4 - 6.5 /CUMM) 5.5 Absolute Lymphocytes (1.2 - 3.4 /CUMM) 2.3 Absolute Monocytes (0.10 - 0.60 /CUMM) 0.7 H Absolute Eosinophils (0.0 - 0.7 /CUMM) 0 Absolute Basophils (0.0 - 0.2 /CUMM) 0 PUBS MCHC (33.0 - 37.0 G/DL) 33.7 Urines Urine Color (YEL,AMB,STR) YEL Urine Clarity (CLEAR) CLEAR Urine pH (5.0 - 8.0) 5.5 Ur Specific [place] (1.001 - 1.035) 1.020 Urine Protein (NEG,<30 MG/DL) 100 H Urine Ketones (NEG) TRACE H Urine Nitrite (NEG) NEG Urine Bilirubin (NEG) NEG@ICTO Urine Urobilinogen (0.1 - 1.0 EU/dl) 1.0 Ur Leukocyte Esterase (NEG) NEG Ur Microscopic SEDIMENT EXAMINED Urine RBC (0 - 5 /HPF) 3-5 Urine WBC (0 - 2 /HPF) 5-10 H Ur Epithelial Cells (NONE,FEW) FEW Urine Bacteria (NEG/NONE) MANY H Hyaline Casts (0/LPF) 1-3 H Granular Casts (NONE /LPF) 5-10 H Urine Hemoglobin (NEG) LARGE H Urine Glucose (N MG/DL) NEG 03/05 Chemistry Sodium (137 - 145 mmol/L) 136 L Potassium (3.5 - 5.1 mmol/L) 3.7 Chloride (98 - 107 mmol/L) 93 L Carbon Dioxide (22 - 30 mmol/L) 23 Anion Gap (5 - 16) 20 H BUN (9 - 20 mg/dL) 32 H Creatinine (0.7 - 1.2 mg/dL) 4.9 H Estimated GFR (>60 ml/min) 14 L BUN/Creatinine Ratio (7 - 25 %) 6.5 L Glucose (65 - 99 mg/dL) 97 Serum Osmolality (285 - 295 MOSM/KG) 288 Calcium (8.4 - 10.2 mg/dL) 10.3 H Total Bilirubin (0.2 - 1.3 mg/dL) 1.4 H Direct Bilirubin (< 0.4 mg/dL) 0.6 H AST (17 - 59 U/L) 682 H ALT (21 - 72 U/L) 140 H Alkaline Phosphatase (< 127 U/L) 87 Creatine Kinase (55 - 170 U/L) 94145 H Total Protein (6.3 - 8.2 g/dL) 8.9 H Albumin (3.5 - 5.0 g/dL) 5.5 H Globulin (1.9 - 4.2 gm/dL) 3.4 Albumin/Globulin Ratio (1.1 - 2.2 %) 1.6 Hematology CBC w Diff NO MAN DIFF REQ WBC (4.8 - 10.8 /CUMM) 15.5 H RBC (4.70 - 6.10 /CUMM) 5.57 Hgb (14.0 - 18.0 G/DL) 17.1 Hct (42 - 52 %) 51.5 MCV (80.0 - 94.0 FL) 92.3 MCH (27.0 - 31.0 PG) 30.8 RDW (11.5 - 14.5 %) 13.6 Plt Count (130 - 400 /CUMM) 230 MPV (7.4 - 10.4 FL) 8.7 Gran % (42.2 - 75.2 %) 78.1 H Lymphocytes % (20.5 - 51.1 %) 14.3 L Monocytes % (1.7 - 9.3 %) 6.7 Eosinophils % (0 - 5 %) 0.5 Basophils % (0.0 - 2.0 %) 0.4 Absolute Granulocytes (1.4 - 6.5 /CUMM) 12.1 H Absolute Lymphocytes (1.2 - 3.4 /CUMM) 2.2 Absolute Monocytes (0.10 - 0.60 /CUMM) 1.0 H Absolute Eosinophils (0.0 - 0.7 /CUMM) 0.1 Absolute Basophils (0.0 - 0.2 /CUMM) 0.1 PUBS MCHC (33.0 - 37.0 G/DL) 33.3 Serology Hepatitis A IgM Ab (NONREACTIVE) NONREACTIVE Hep Bs Antigen (NONREACTIVE) NONREACTIVE Hep B Core IgM Ab Conf (NONREACTIVE) NONREACTIVE Hepatitis C Antibody (NONREACTIVE) NONREACTIVE Toxicology Urine Opiates Screen (>2000 NG/ML) < 100.00 Methadone Screen (>300 NG/ML) > 735 H Acetaminophen (10.0 - 30.0 ug/mL) < 10.0 L Barbiturate Screen (>200 NG/ML) < 60 Ur Phencyclidine Scrn (>25 NG/ML) 6.60 Amphetamines Screen (>1000 NG/ML) < 100 U Benzodiazepines Scrn (>200 NG/ML) > 800 H Urine Cocaine Screen (>300 NG/ML) < 50 Urine Cannabis Screen (>50 NG/ML) > 80.00 H Urines Urine Osmolality (300 - 1000 MOSM/KG) 231 L Ur Random Creatinine (mg/dL) 292.0 Ur Random Sodium (30 - 90 mmol/L) 26 L Ur Random Potassium (mmol/L) 31.6 Fraction Sodium Excret (<1% %) 0.3 Assessment/Plan Assessment/Recommendations: Assessment: Mr. 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 He has been noted to have a moderate transaminitis which is quite likely secondary to muscle as his alkaline phosphatase and bilirubin are not significantly elevated. He had a negative Tylenol level and a negative viral hepatitis profile and as there is an alternative explanation for his increased transaminases I do not feel that any further workup is indicated at this time for his liver unless his transaminases fail to improve with improvement in his CPK. He did have some nausea and vomiting in the days leading up to his admission, but the symptoms have now resolved and as he was without any hematemesis and did not feel that an endoscopy is necessary. Recommendations: 1. Hydration as per primary team. 2. Follow daily LFTs 3. Would consider further work up for his increased LFTs as an outpatient if they remain elevated with resolution of the CPK. 4. Administer anti-emetics as needed 5. Consideration will be given for a diagnostic EGD if his diet is not able to be advanced and/or if hematemesis ensues. Please re-contact GI for any acute GI issues while he is admitted. Consult Acknowledgment - Thank you for your consult request.
[2017-03-06 14:29] VITALS: BP 122/70
--- NOTE | 2017-03-06 15:10 | NUR ---
NURSING NOTE: PT LEFT FLOOR VIA WC FOR ABD US, PT NPO SINCE BREAKFAST, A/OX3, ROOM AIR, IVF PER MD ORDER, TICKET TO RIDE COMPLETE, CHART SENT WITH PT. DENIES PAIN, WILL GIVE REPORT TO NEXT SHIFT RN.
--- NOTE | 2017-03-06 16:32 | ULTRASOUND REPORT ---
EXAMINATION: US ABDOMEN LIMITED CLINICAL INFORMATION: Transaminitis secondary to rhabdomyolysis. Right upper quadrant and left upper quadrant abdominal tenderness. 32-year-old male patient. COMPARISON: None recent. TECHNIQUE: Real-time imaging of the right upper quadrant abdominal viscera. FINDINGS: PANCREAS: Visualized portions of pancreas are normal. LIVER: Normal. The liver demonstrates normal size, contour and mild increased echogenicity. No focal lesion or intrahepatic biliary duct dilatation. GALLBLADDER: Normal. The gallbladder is physiologically distended without evidence of stones, sludge, polyps, wall thickening or pericholecystic fluid. COMMON BILE DUCT: Normal in caliber measuring 0.6 cm in diameter. RIGHT KIDNEY: Normal. No hydronephrosis. No renal calculi or focal parenchymal lesions. The kidney measures 10.5 cm in maximum dimension. FREE FLUID: None. IMPRESSION: No evidence of biliary tract disease.
--- NOTE | 2017-03-06 18:29 | Event Note ---
Event Note Event Note: Luis E CPK from 3PM today is 47,515 per lab. This is increased from the morning lab. Patient was seen and evaluated. He states that the pain has improved significantly but reports it is still slightly tender to deep palpation in bilateral posterior thighs. Patient is otherwise neurologically intact with full strength and no sensation abnormalities in both legs. No trouble with ambulation. Pulse intact and no paresthesia. In concern for possible compartment syndrome in the setting of increasing CPK, however, vascular surgeon Dr. Campos was consulted. He advised that it is unlikely to be 2/2 compartment syndrome given the improvement in his pain and lack of neurological findings. Regardless, he will come and evaluate the patient himself in person tonight. Further recommendations to be followed. In the meantime, his IVF rate was increased from 200 to 300 cc/hr.
[2017-03-06 21:59] VITALS: BP 120/68
--- NOTE | 2017-03-06 22:19 | Cons- Vascular Surgery ---
General Information and HPI Consulting Request Date of Consult: 03/06/17 Requested By: CEDRIC BERNSTEIN MD History of Present Illness: 32-year-old male with rhabdomyolysis Patient admitted yesterday with dehydration, acute kidney injury, increased CPK. Patient was quite active, dehydrated. Diagnosed with rhabdomyolysis. Initiate some minimal discomfort in the thighs. Currently he has no pain no swelling, no weakness no numbness, no tingling in the legs. Vascular was asked to evaluate for possible compartment syndrome. Patient is currently comfortable in bed right now. Able to ambulate. Allergies/Medications Allergies: Coded Allergies: No Known Allergies (03/05/17) Home Med List: No Known Home Medications Current Medications: Current Medications Sig/Brian Start time Last Medication Dose Route Stop Time Status Admin Heparin Sodium 5,000 UNIT Q8 03/06 0600 AC (Porcine) SC Melatonin 3 MG ONCE ONE 03/06 2030 DC 03/06 PO 03/06 203 212 Methadone HCl 90 MG ONCE ONE 03/06 0900 DC 03/06 PO 03/06 0901 0919 Nicotine 21 MG DAILY 03/05 205 AC 03/06 TOP 2124 Ondansetron HCl 4 MG Q6P PRN 03/05 2230 AC IV Oxycodone HCl 5 MG Q6P PRN 03/05 2230 AC PO Oxycodone HCl 10 MG Q6P PRN 03/05 2230 AC 03/06 PO 1612 Patient Medication 1 ED .STK-MED ONE 03/06 1411 DC Teaching ED 03/06 1412 Polyethylene Glycol 17 GM DAILY 03/06 1000 AC PO Sodium Chloride 1,000 ML Q6H 03/05 2215 AC 03/06 IV 2124 Past History Medical History Blood Transfusion Hx: No Neurological: NONE EENT: NONE Cardiovascular: NONE Respiratory: NONE Gastrointestinal: NONE Hepatic: NONE Renal: NONE Musculoskeletal: NONE Psychiatric: NONE Endocrine: NONE Blood Disorders: NONE Cancer(s): NONE OB/GYN DOCTOR/Reproductive: NONE Surgical History Pertinent Surgical History: 1 Family History Relations & Conditions If Any: GRANDMOTHER FH: diabetes mellitus MOTHER, , Age 40-50. Psychosocial History Where Do You Live? Home Services at Home: None Primary Language: Danish Smoking Status: Current Everyday Smoker (4-5 Cigarettes Daily, Since 14) ETOH Use: denies use Illicit Drug Use: marijuana Functional Ability ADLs Independent: dressing, eating, toileting, bathing. Ambulation: independent IADLs Independent: shopping, housework, finances, food prep, telephone, transportation , medication admin. Employment History Employment: Employed Profession/Employer: [employer] Review of Systems Review of Systems Constitutional: Reports: weakness. Denies: chills. EENTM: Denies: no symptoms. Cardiovascular: Denies: edema. Respiratory: Denies: short of breath. GI: Reports: vomiting. Musculoskeletal: Denies: back pain. Skin: Denies: no symptoms. Neurological/Psychological: Denies: numbness, paresthesia. Hematologic/Endocrine: Denies: bruising. Exam & Diagnostic Data Vital Signs and I&O Vital Signs Date Time Temp Pulse Resp B/P B/P Pulse O2 O2 Flow FiO2 Mean Ox Delivery Rate 03/06 2159 98.7 73 20 120/68 96 03/06 1429 98.1 81 20 122/70 95 Room Air 03/06 0712 98.0 97 20 118/82 99 Room Air 03/06 0130 98.2 93 20 120/78 99 Room Air 03/05 2226 94 20 130/77 100 Room Air Intake & Output 03/06 1600 03/06 0800 03/06 0000 03/05 1600 14 0800 03/05 0000 Intake Total 1800 1000 6050 Output Total 700 Balance 1100 1000 6050 Intake, IV 1600 1000 6050 Intake, Oral 200 Number 0 Bowel Movements Output, Urine 700 Patient 65.317 kg 61.235 kg Weight Weight Reported by Patient Reported by Patient Measurement Method Physical Exam General Appearance: well developed/nourished, no apparent distress, alert, awake Head: normal appearance Eyes: Bilateral: normal appearance. Neck: normal inspection Respiratory: normal breath sounds Cardiovascular: regular rate/rhythm Peripheral Pulses: 2+ dorsalis pedis (R), 2+ dorsalis pedis (L) Gastrointestinal: soft, non-tender Extremities: normal inspection, no edema, calf tenderness, no leg pain, no thigh pain. No edema, no tenseness inside her calves. full motor function. Positive sensation. Neurologic/Psych: no motor/sensory deficits, awake, alert, oriented x 3 Assessment/Plan Assessment/Plan Rhabdomyolysis. Appears to have been due to exertion, dehydration. Kidney function normalizing. With respect to the lower extremities, patient has no clinical signs of compartment syndrome at this time. He has full motor function, no neuro deficits, no tenderness in the thighs or calves. Due to normal exam, would not recommend compartment pressure measurements at this time. However, if condition changes may need to reevaluate. Please re-consult vascular surgery as needed. Problem List: 1. Rhabdomyolysis Consult Acknowledgment - Thank you for your consult request.
[2017-03-07 06:51] VITALS: BP 140/82
--- NOTE | 2017-03-07 07:38 | PN- Housestaff ---
FANNIE COREA 03/07/17 0737: Subjective Follow-up For: Rhabdomyolysis Acute kidney injury Subjective: The patient was comfortable this morning. Did not have any complaints. No abdominal pain, urinary difficulties. Remained afebrile overnight. Blood pressure stable. Currently asymptomatic. As per the patient, he had similar complaints in the past decreased urine output secondary to dehydration. Review of Systems Constitutional: Reports: see HPI. Objective Last 24 Hrs of Vital Signs/I&O Vital Signs Date Time Temp Pulse Resp B/P B/P Pulse O2 O2 Flow FiO2 Mean Ox Delivery Rate 03/07 0651 97.8 77 18 140/82 100 Room Air 03/06 2159 98.7 73 20 120/68 96 03/06 1429 98.1 81 20 122/70 95 Room Air Intake & Output 03/07 0800 03/07 0000 03/06 1600 Intake Total 2400 2990 1800 Output Total 400 900 700 Balance 2000 2090 1100 Intake, IV 2400 2150 1600 Intake, Oral 840 200 Number 0 Bowel Movements Output, Urine 400 900 700 Patient 148 lb Weight Physical Exam General Appearance: No Acute Distress Other Physical Findings: General Exam: AAOx3, No acute distress, Skin: No rashes, no breakdown HEENT: PERRLA, EOMI Neck: Supple, No JVD No cervical lymphadenopathy CVS: Reg Rate, Normal S1,S2, No MGR Resp: Normal air entry, no ronchi/rales Abdomen: Soft, No tenderness, Normal Bowel Sounds Neuro: Normal Speech, Strength 5/5 b/l x 4 extremities, Sensation intact, CN III -XII NL, Reflexes 2+ Extremities: No cyanosis, pedal edema Current Medications: Current Medications Sig/Brian Start time Last Medication Dose Route Stop Time Status Admin Heparin Sodium 5,000 UNIT Q8 03/06 06 AC (Porcine) SC Melatonin 3 MG ONCE ONE 03/06 2030 DC 03/06 PO 03/06 Methadone HCl 90 MG ONCE ONE 03/06 900 DC 03/06 PO 03/06 0901 0919 Nicotine 21 MG 2100 03/07 2100 AC TOP Nicotine 21 MG DAILY 03/05 2059 DC 03/06 TOP 2123 Ondansetron HCl 4 MG Q6P PRN 03/05 2230 AC IV Oxycodone HCl 5 MG Q6P PRN 03/05 2230 AC PO Oxycodone HCl 10 MG Q6P PRN 03/05 2230 AC 03/06 PO 1612 Patient Medication 1 ED .STK-MED ONE 03/06 1411 VT Teaching ED 03/06 1412 Polyethylene Glycol 17 GM DAILY 03/06 1000 AC PO Sodium Chloride 1,000 ML Q6H 03/05 2215 AC 03/07 IV 0413 Last 24 Hrs of Lab/Luke Results Last 24 Hrs of Labs/Mics: Laboratory Tests 03/07/17 0620: Sodium Pending, Potassium Pending, Chloride Pending, Carbon Dioxide Pending, Anion Gap Pending, BUN Pending, Creatinine Pending, BUN/Creatinine Ratio Pending , Total Bilirubin Pending, Direct Bilirubin Pending, AST Pending, ALT Pending, Alkaline Phosphatase Pending, Creatine Kinase Pending, Total Protein Pending, Albumin Pending 03/06/17 1450: Creatine Kinase > 80643 H Assessment/Plan Assessment: Mr. Durham is a 32 y/o M with no significant PMHx who presented with nausea, vomiting, weakness and dark urine. #Rhabdomyolysis: Marked elevation in CPK (92165), dark urine, leg tenderness/ weakness and large hemoglobin in the urine consistent with rhabdomyolysis. Inciting factor is likely physical exertion in the heat with little fluid intake. No stigmata of dermatomyositis appreciable on exam. S/p 1 L bolus of NS x5. * Continue IV hydration with NS @ 200 cc/hr. * CPK trending down. * Zofran 4 mg IV Q6H PRN for nausea/vomiting. * Other causes such as inflammatory, infectious, other drugs ruled out. #EBONI: BUN/Cr 32/4.9 on admission. Likely secondary to rhabdomyolysis. * Continue aggressive IV hydration. * Improved significantly with IV hydration 07/10.3 #Transaminitis: AST/ALT 682/140 on admission. Total bilirubin and direct bilirubin slightly elevated as well, 1.4 and 0.6 respectively. Alkaline phosphatase WNL. Likely secondary to rhabdomyolysis. * Urine toxicology positive for benzo, Cannabis, methadone. Negative for acetaminophen * Recommendation to further walk up increased liver function test as an outpatient if it persistently elevated after resolution of CPK * Will obtain abdominal ultrasound #Nicotine dependence: * Nicotine patch 21 mg #Methadone dependence * Methadone dose of 90 [address] [facility] Diet: Regular Pain: Oxycodone 10 mg PO Q6H PRN for severe pain (scale 7-10) Oxycodone 5 mg PO Q6H PRN for moderate pain (scale 4-6) DVT PPx: HSQ and ALPs CODE: FULL Problem List: 1. Acute renal failure 2. Transaminitis 3. EBONI (acute kidney injury) Pain Ratin Pain Location: None Pain Goal: Pain 4 or less Pain Plan: Tylenol when necessary Tomorrow's Labs & Rationales: Basic electrolyte panel, CPK SANTY HEMPHILL MD 03/07/17 1205: Attending MD Review Statement Attending Statement Attending MD Statement: examined this patient, discuss w/resident/PA/SHIP PROPELLER FINISHER, agreed w/resident/PA/SHIP PROPELLER FINISHER, reviewed EMR data (avail), discussed with nursing, discussed with case mgmt, reviewed images, amended to note Attending Assessment/Plan: Patient seen and examined, overall feeling much better. He absolutely offers no complaints. His lower extremity pain and abdominal pain has resolved. Vital Signs Date Time Temp Pulse Resp B/P B/P Pulse O2 O2 Flow FiO2 Mean Ox Delivery Rate 03/07 0651 97.8 77 18 140/82 100 Room Air 03/06 2159 98.7 73 20 120/68 96 03/06 1429 98.1 81 20 122/70 95 Room Air on exam; aox3, nad. cv; s1,s2, rrr resp; clear abd; soft, nt, bs+ ext; no edema. Laboratory Tests 03/07 03/06 0620 1450 Chemistry Sodium (137 - 145 mmol/L) 143 Potassium (3.5 - 5.1 mmol/L) 3.7 Chloride (98 - 107 mmol/L) 112 H Carbon Dioxide (22 - 30 mmol/L) 23 Anion Gap (5 - 16) 8 BUN (9 - 20 mg/dL) 9 Creatinine (0.7 - 1.2 mg/dL) 0.8 Estimated GFR (>60 ml/min) > 60 BUN/Creatinine Ratio (7 - 25 %) 11.3 Total Bilirubin (0.2 - 1.3 mg/dL) 0.9 Direct Bilirubin (< 0.4 mg/dL) 0.3 AST (17 - 59 U/L) 794 H ALT (21 - 72 U/L) 230 H Alkaline Phosphatase (< 127 U/L) 61 Creatine Kinase (55 - 170 U/L) > 14918 H > 88125 H Total Protein (6.3 - 8.2 g/dL) 5.6 L Albumin (3.5 - 5.0 g/dL) 3.2 L A/P; 32-year-old male with no significant past history who was admitted with acute renal failure, dehydration, rhabdomyolysis. Creatinine has improved to normal after IV hydration. CK levels still reported as more than 32,000. It was 47,000 yesterday and it is 39,000 today. So it is coming down although still significantly high. At this point we'll continue with IV hydration. After this bag will decrease the rate to 200 mL an hour. Currently patient on 300 mL an hour. Patient was encouraged to ambulate. Patient has been seen by mask thevascular surgery and the chance of compartment syndrome was very low as patient did not have any swelling, pain or any other symptoms in his lower extremities. His abdomen is nontender is not distended. DVT px; Hep sq, ordered but patient fefusing. We can USE ALPS and ambulation was encouraged. He will be discharged home once his CK levels are down to an acceptable range.
--- NOTE | 2017-03-07 14:23 | Patient Discharge Instructions ---
Discharge Instructions General Discharge Information You were seen/treated for: #1 muscle breakdown-rhabdomyolysis Watch for these problems: #1 decreased urine output, discoloration of urine. #2 abdominal pain, fever. Special Instructions: #1 please follow-up with primary care doctor within 1-2 weeks of discharge. #2 please check creatinine kinase-blood work within 1-2 weeks of discharge. Please discuss with your primary care doctor about that and the results and follow-up. #3 Please stay hydrated, and drink fluids regularly during the day. Activity Full Activity/No Limits: Yes Activity Self Limited: Yes Acute Coronary Syndrome Inclusion Criteria At DC or during hospital stay patient has or had the following: ACS DIAGNOSIS No Discharge Core Measures Meds if any: Prescribed or Continued at Discharge Meds if any: NOT Prescribed or Continued at Discharge Congestive Heart Failure Inclusion Criteria At DC or during hospital stay patient has or had the following: CHF DIAGNOSIS No Discharge Core Measures Meds if any: Prescribed or Continued at Discharge Meds if any: NOT Prescribed or Continued at Discharge Cerebrovascular accident Inclusion Criteria At DC or during hospital stay patient has or had the following: CVA/TIA Diagnosis No Discharge Core Measures Meds if any: Prescribed or Continued at Discharge Meds if any: NOT Prescribed or Continued at Discharge Venous thromboembolism Inclusion Criteria VTE Diagnosis No VTE Type NONE VTE Confirmed by (Test) NONE Discharge Core Measures - Per Current guidelines, there needs to be overlap - treatment for the first 5 days of Warfarin therapy. - If discharged on Warfarin prior to 5 days of - overlap therapy, the patient will need to be - assessed for post discharge needs including - *Post discharge parental anticoagulation - *Warfarin and/or parental anticoagulation education - *Follow up date to check INR post discharge At least 5 days overlap therapy as Inpatient No Meds if any: Prescribed or Continued at Discharge Note: Overlap Therapy is Warfarin and Anticoagulant Meds if any: NOT Prescribed or Continued at Discharge
[2017-03-07 14:42] VITALS: BP 130/82
[2017-03-07] MEDS ORDERED: METHADONE HCL10 M1 PO (15:09)
[2017-03-07 23:15] VITALS: BP 154/99
[2017-03-08 00:38] VITALS: BP 160/100
--- NOTE | 2017-03-08 00:54 | NUR ---
PT C/O FEELING BLOATED, NAUSEA AND "TIGHTNESS" ACROSS UPPER ABD. LUNGS CTA, DENIES SOB, GENERALIZED TRACE EDEMA NOTED. PREVIOUS RN SPOKE WITH MOD PRIOR TO END OF SHIFT, NO NEW ORDERS AT THIS TIME. THIS RN TEXT PAGED SOCIAL SCIENCE PROFESSOR RUBY WITH UPDATED BP 160/100 PULSE 52.
--- NOTE | 2017-03-08 06:07 | PN- Housestaff ---
See Addendum Subjective Follow-up For: Rhabdomyolysis EBONI- resolved History of opiate abuse on methadone program Subjective: Patient was visited and examined this morning. He was admitted 2 days ago for severe rhabdomyolysis and acute kidney injury. patient was visits and examined this morning. Patient denies any muscle pain, chest pain, abdominal pain, shortness of breath, palpitation, headache, nausea, vomiting. Vital signs: Patient was slightly hypertensive maximum systolic pressure of 160s mmhg. Review of Systems Constitutional: Reports: see HPI. Denies: chills, diaphoresis, fever, malaise, weakness, unexplained weight loss. EENTM: Reports: see HPI. Cardiovascular: Reports: see HPI. Respiratory: Denies: cough, hemoptysis, orthopnea, short of breath, sputum production, stridor, wheezing. Gastrointestinal: Reports: see HPI, bloating. Genitourinary: Reports: see HPI. Musculoskeletal: Denies: back pain, joint pain, joint swelling, muscle pain, muscle stiffness. Neurological/Psychological: Reports: no symptoms. Objective Last 24 Hrs of Vital Signs/I&O Vital Signs Date Time Temp Pulse Resp B/P B/P Pulse O2 O2 Flow FiO2 Mean Ox Delivery Rate 03/08 0700 97.8 58 20 160/93 99 Room Air 03/08 0038 98.5 52 20 160/100 96 Room Air 03/07 2315 98.6 56 18 154/99 97 Room Air 03/07 1442 99.4 63 20 130/82 96 Room Air Intake & Output 03/08 0800 03/08 0000 03/07 1600 Intake Total 4786 163 4707 Output Total 400 550 20 Balance 971 485 5895 Intake, IV 1150 1800 Intake, Oral 800 400 Number 1 Bowel Movements Output, 20 Emesis Output, Urine 400 550 Patient 154 lb Weight Weight Standing Scale Measurement Method Physical Exam General Appearance: Alert, Oriented X3, Cooperative, No Acute Distress Skin: No Rashes, No Breakdown, No Significant Lesion HEENT: PERRLA, EOMI, Mucous Membr. moist/pink Cardiovascular: Normal S1, Normal S2, No Murmurs Lungs: Clear to Auscultation, Normal Air Movement Abdomen: Soft Neurological: Normal Speech Extremities: No Cyanosis, No Edema, Normal Pulses, No Tenderness/Swelling Vascular: Normal Pulses Current Medications: Current Medications Sig/Brian Start time Last Medication Dose Route Stop Time Status Admin Heparin Sodium 5,000 UNIT Q8 03/06 0600 AC (Porcine) SC Methadone HCl 90 MG DAILY 03/08 1000 UNVr PO 03/09 1001 Methadone HCl 90 MG ONCE ONE 03/07 0945 DC 03/07 PO 03/07 0946 1034 Nicotine 21 MG 2100 03/07 2100 AC 03/07 TOP 1911 Ondansetron HCl 4 MG .STK-MED ONE 03/07 1120 DC IM 03/07 1121 Ondansetron HCl 4 MG Q6P PRN 03/05 2230 AC 03/08 IV 0539 Oxycodone HCl 5 MG Q6P PRN 03/05 2230 AC PO Oxycodone HCl 10 MG Q6P PRN 03/05 2230 AC 03/07 PO 2137 Polyethylene Glycol 17 GM DAILY 03/06 1000 AC PO Sodium Chloride 1,000 ML Q5H 03/07 1400 AC 03/08 IV 0250 Sodium Chloride 1,000 ML Q6H 03/05 2215 DC 03/07 IV 1201 Last 24 Hrs of Lab/Luke Results Last 24 Hrs of Labs/Mics: Laboratory Tests 03/08/17 0619: Sodium Pending, Potassium Pending, Chloride Pending, Carbon Dioxide Pending, Anion Gap Pending, BUN Pending, Creatinine Pending, BUN/Creatinine Ratio Pending , Total Bilirubin Pending, Direct Bilirubin Pending, AST Pending, ALT Pending, Alkaline Phosphatase Pending, Creatine Kinase Pending, Total Protein Pending, Albumin Pending Assessment/Plan Assessment: Mr. Durham is a 32 y/o M with no significant PMHx who presented with nausea, vomiting, weakness and dark urine. #Rhabdomyolysis: * Continue IV hydration with NS 125 cc/hr. * CPK trending down. #EBONI: Resolved #Transaminitis: Hepatitis panel is negatieve, Possible cause of transaminitis is Rhabdo. Currently is trending down. #Nicotine dependence: * Nicotine patch 21 mg #Methadone dependence * Methadone dose of 90 mg daily confirmed via [facility] Diet: Regular Pain: Oxycodone 10 mg PO Q6H PRN for severe pain (scale 7-10) Oxycodone 5 mg PO Q6H PRN for moderate pain (scale 4-6) DVT PPx: HSQ and ALPs CODE: FULL Problem List: 1. Nicotine dependence 2. Transaminitis 3. Rhabdomyolysis Pain Ratin Pain Location: none Pain Goal: none Pain Plan: mild moderat and sevre pain pathways Tomorrow's Labs & Rationales: BEP and CPK Discharge Plan Stable for Discharge? No Anticipated Discharge (Day): tomorrow
[2017-03-08 07:00] VITALS: BP 160/93
[2017-03-08 14:22] VITALS: BP 146/80
--- NOTE | 2017-03-08 18:39 | NUR ---
ALERT AND ORIENTED X 3. ON ROOM AIR. DENIES SHORTNESS OF BREATH VITAL SIGNS STABLE. DENIES CHEST PAIN. + PULSES. DENIES NUMBNESS/TINGLING BOWEL SOUNDS AUDIBLE. SKIN C/D/I. STEADY GAIT NO DISCOMFORT AT THIS TIME. IV FLUIDS RUNNING. PATIENT RESTING AT THIS TIME. WILL CONTINUE TO MONITOR
[2017-03-08 23:28] VITALS: BP 140/78
[2017-03-09 06:44] VITALS: BP 151/93
--- NOTE | 2017-03-09 08:32 | PN- Housestaff ---
BELKYS MATHEW,[facility] 03/09/17 0831: Subjective Follow-up For: Rhabdomyolysis EBONI- resolved History of opiate abuse on methadone program Subjective: Patient was seen and examined this morning, overnight complaints. EKG was obtained QTc 513, no signs of LVH. Will adjust fluid to normal saline with KCl 20 mEq per hour running at 100 mL/h Review of Systems Constitutional: Reports: see HPI. Objective Last 24 Hrs of Vital Signs/I&O Vital Signs Date Time Temp Pulse Resp B/P B/P Pulse O2 O2 Flow FiO2 Mean Ox Delivery Rate 03/09 0644 98.0 78 18 151/93 99 Room Air 03/08 2328 98.2 72 20 140/78 96 Room Air 03/08 1422 98.0 70 20 146/80 94 Room Air Intake & Output 03/09 1600 03/09 0800 03/09 0000 Intake Total 1250 550 Output Total 2300 1500 Balance -1050 -950 Intake, IV 800 300 Intake, Oral 450 250 Output, Urine 2300 1500 Patient 65.913 kg Weight Weight Standing Scale Measurement Method Physical Exam General Appearance: Alert, Oriented X3, Cooperative, No Acute Distress Skin: No Rashes, No Breakdown, No Significant Lesion HEENT: Atraumatic, PERRLA, EOMI, Mucous Membr. moist/pink Neck: Supple, No JVD Cardiovascular: Regular Rate, Normal S1, Normal S2, No Murmurs Lungs: Clear to Auscultation, Normal Air Movement Abdomen: Normal Bowel Sounds, Soft, No Tenderness, No Hepatospenomegaly, No Masses Neurological: Normal Gait, Normal Speech, Strength at 5/5 X4 Ext, Normal Tone, Sensation Intact, Cranial Nerves 3-12 NL, Reflexes 2+ Extremities: No Clubbing, No Cyanosis, No Edema, Normal Pulses, No Tenderness/ Swelling Assessment/Plan Assessment: Mr. Durham is a 32 y/o M with no significant PMHx who presented with nausea, vomiting, weakness and dark urine. #Rhabdomyolysis: * Continue IV hydration with NS 100 cc/hr. * CPK is persistently elevated despite aggressive IV fluid, continue to trend down CPK. * Potassium today is low, will replete potassium and will add KCl to IV fluid #EBONI: Resolved #Transaminitis: Hepatitis panel is negatieve, Possible cause of transaminitis is Rhabdo. Currently is trending down. #Nicotine dependence: * Nicotine patch 21 mg #Methadone dependence * Methadone dose of 90 mg daily confirmed via [facility] * EKG to rule out QTC prolongation given chronic methadone, no signs of LVH or QTc prolongation in EKG Diet: Regular Pain: Oxycodone 10 mg PO Q6H PRN for severe pain (scale 7-10) Oxycodone 5 mg PO Q6H PRN for moderate pain (scale 4-6) DVT PPx: HSQ and ALPs CODE: FULL Problem List: 1. Rhabdomyolysis Pain Ratin Pain Location: NONE Pain Goal: Pain 4 or less Pain Plan: Mild pain pathway Tomorrow's Labs & Rationales: BMP, CPK LILIAN MATHEW,JACLYN 03/09/17 0953: Attending MD Review Statement Attending Statement Attending MD Statement: examined this patient, discuss w/resident/PA/CUPOLA PATCHER HELPER, agreed w/resident/PA/CUPOLA PATCHER HELPER, reviewed EMR data (avail), discussed with nursing Attending Assessment/Plan: Patient is frustrated about still being here. He doesn't feel bloated uncomfortable and he is not edematous. Of note his potassium today is 3, pressure has been borderline high for the past 24 hours at 150-160/80-90 and his CPK has barely budged from 27,000-25,000. I explained to him at length that we were looking for a considerable drop in CPK. It remains unclear why he has this persistently elevated rhabdomyolysis with initial CPK over 32,000 and now despite more than 72 hours of aggressive IV hydration the CPK remains at 25,000. He may need a workup for polymyositis or other causes of elevated CPK but that can probably be deferred to the outpatient. For now will give him by mouth K replacement, check an EKG to look at his QTC and make sure there is no LVH. Add K to the IV fluids and continue the fluids and follow the CPK closely.
[2017-03-09 14:52] VITALS: BP 116/60
--- NOTE | 2017-03-09 17:38 | Discharge Summary ---
Visit Information Visit Dates Admission Date: 03/05/17 Discharge Date: 03/10/17 Hospital Course Course Attending Physician: CEDRIC BERNSTEIN MD Primary Care Physician: PATIENT HAS NO PRIMARY CARE DR Hospital Course: Mr. Durham is 52 year old male with no significant past medical history, nicotine and methadone dependent presented with nausea, vomiting, weakness and dark urine. Patient was admitted to general medical floor for clinical management of following medical problems: #Rhabdomyolysis: -Patient presented with history of severe bilateral thighs pain, severe nausea and vomitingx6, dark urine after working for prolonged hours outdoors, CPK on admission 28.634, BUN/creatinine 32/4.9. Patient received IV fluid normal saline running at 200 mL/h, during hospital stay CPK initially increased to over 32,000 , patient was maintained on aggressive IV hydration, vascular consultation was obtained to rule out compartment syndrome given tender thighs. Patient had full normal motor function, no neuro deficit and compartment syndrome was excluded. CPK decreased to 13,754, kidney function normalized prior to discharge. Patient was advised to have adequate hydration, avoid exertion for next few days after discharge. Was instructed to repeat BEP and creatinine kinase levels in a week' s time and follow up with his primary care physician. #Transaminitis: Mostly due to rhabdomyolysis, AST 682, ALT 140, alkaline phosphatase 87. GI consultation was obtained with recommendation for daily liver function test and outpatient investigation if LFT remain elevated with resolution of CPK. Hepatitis panel is negatieve. Prior to discharge, LFT was trending down AST 720, ALT 278 alkaline phosphatase 73. #Nicotine dependence: -Nicotine patch 21 mg. #Methadone dependence -Methadone dose of 90 mg daily confirmed via APT foundation, EKG was obtained to rule out QTC prolongation given chronic methadone, no signs of LVH or QTc prolongation in EKG. #High BP: -Patient's blood pressure was ranging in the high range, with systolic and 170s, possibly secondary to high amount of IV fluids, requiring amlodipine by mouth once. Patient has been suggested to get his blood pressure checked with his primary care physician and may or may not require blood pressure medications then onwards. Diet: Regular diet DVT PPx: HSQ and ALPs CODE: FULL CODE Allergies: Coded Allergies: No Known Allergies (03/05/17) Disposition Summary Disposition Principal Diagnosis: Rhabdomyolysis Additional Diagnosis: Transaminitis High blood pressure Discharge Disposition: home or self care Discharge Instructions General Discharge Information Code Status: Full Code Patient's Diet: Regular diet Patient's Activity: As tolerated Follow-Up Instructions/Appts: #1 please follow-up with primary care doctor within 1-2 weeks of discharge. #2 please check creatinine kinase-blood work within 1-2 weeks of discharge. Please discuss with your primary care doctor about that and the results and follow-up. #3 Please stay hydrated, and drink fluids regularly during the day. Medications at Discharge Discharge Medications: Continue taking these medications: Methadone Hydrochloride (Methadone HCl) 10 MG TABLET 9 Tablet ORAL DAILY Comments: Last Taken: 03/10/17 Time: 1000 Copies To: DAYSI MATHEW,CURT TUCKER; MANDA MATHEW,EFRAIN
[2017-03-09 21:55] VITALS: BP 160/100
--- NOTE | 2017-03-09 21:55 | NUR ---
EUGENE JANG REPORTED TO ME PT'S BP 172/100. THIS RN RE-TOOK BP AND WAS 160/100. PATIENT DENIES ANY HEADACHE OR DISCOFORT. NO DISTRESS NOTED. MD IRAHETA WAS MADE AWARE. FLUID RATE TO BE REDUCED TO 75ML/HR AND BP TO BE RE-CHECKED IN 2 HOURS PER MD IRAHETA. PT ALSO C/O BLE PAIN 7 OUT OF 10 AND REQUESTED SLEEP MEDS. ROXYCODONE 10MG AND MELATONIN 3MG WERE ADMINISTERED. FLUIDS ARE CURRENTLY RUNNING AT 75ML/HR. PATIENT RESTING COMFORTABLY IN BED. WILL CONTINUE TO MONITOR.
[2017-03-09 22:41] VITALS: BP 172/100
--- NOTE | 2017-03-10 | NUR ---
BP RE-CHECKED 174/100. NO DISTRESS NOTED. MD IRAHETA WAS MADE [place]. 5MG AMLODIPINE WAS ORDERED AND ADMINISTERED. FLUIDS CONTINUE TO RUN AT 75ML/HR. WILL CONTINUE TO MONITOR.
[2017-03-10 00:12] VITALS: BP 174/100
[2017-03-10 06:17] VITALS: BP 140/84
--- NOTE | 2017-03-10 07:32 | PN- Housestaff ---
APRIL MATHEW,JESICA 03/10/17 0732: Subjective Follow-up For: Rhabdomyolysis Complaints: no complaints Subjective: I followed up and examined the patient today. He is resting comfortably in bed, does not appear to be in distress. Does not offer any complaints, is eager to go home. He is IV fluids running at 100 and a per hour, and he is eating and drinking adequately. His blood pressure overnight had elevated requiring 5 mg of oral amlodipine. But he is not hypertensive by history. Review of Systems Constitutional: Reports: see HPI. Objective Last 24 Hrs of Vital Signs/I&O Vital Signs Date Time Temp Pulse Resp B/P B/P Pulse O2 O2 Flow FiO2 Mean Ox Delivery Rate 03/10 617 98.5 91 20 140/84 94 Room Air 03/10 0035 174/100 03/10 0012 174/100 03/09 2241 98.9 63 20 172/100 96 Room Air 03/09 2155 160/100 Intake & Output 03/10 1600 03/10 0800 03/10 0000 Intake Total 1100 300 Output Total 1675 1600 Balance -575 -1300 Intake, IV 600 300 Intake, Oral 500 Output, Urine 1675 1600 Patient 61.689 kg Weight Weight Standing Scale Measurement Method Physical Exam General Appearance: Alert, Oriented X3, Cooperative, No Acute Distress Other Physical Findings: Skin: No Rashes, No Breakdown, No Significant Lesion HEENT: Atraumatic, PERRLA, EOMI, Mucous Membr. moist/pink Neck: Supple, No JVD Cardiovascular: Regular Rate, Normal S1, Normal S2, No Murmurs Lungs: Clear to Auscultation, Normal Air Movement Abdomen: Normal Bowel Sounds, Soft, No Tenderness, No Hepatospenomegaly, No Masses, No CVA tenderness. Neurological: Normal Gait, grossly intact. Extremities: No Clubbing, No Cyanosis, No Edema, Normal Pulses, No Tenderness/ Swelling Current Medications: Current Medications Sig/Brian Start time Last Medication Dose Route Stop Time Status Admin Amlodipine Besylate 5 MG ONCE ONE 03/10 0015 DC 03/10 PO 03/10 0016 0035 Heparin Sodium 5,000 UNIT Q8 03/06 0600 DCD (Porcine) SC Melatonin 3 MG ONCE ONE 03/09 2130 DC 03/09 PO 03/09 2131 214 Methadone HCl 90 MG DAILY 06/19 1000 DCD 03/10 PO 1009 Nicotine 21 MG 2100 03/07 2100 DCD 03/09 TOP 210 Ondansetron HCl 4 MG Q6P PRN 03/05 2230 DCD 03/08 IV 203 Oxycodone HCl 5 MG Q6P PRN 03/05 2230 DCD PO Oxycodone HCl 10 MG Q6P PRN 03/05 2230 DCD 03/09 PO 2150 Polyethylene Glycol 17 GM DAILY 03/06 1000 DCD PO Potassium Chloride 20 MEQ Q10H 03/09 1145 DCD 03/10 Sodium Chloride 1,000 ML IV 0037 Last 24 Hrs of Lab/Luke Results Last 24 Hrs of Labs/Mics: Laboratory Tests 03/10/17 0725: Anion Gap 9, Estimated GFR > 60, BUN/Creatinine Ratio 3.3 L, Creatine Kinase 65711 H Assessment/Plan Assessment: Mr. Durham is a 32 y/o M with no significant PMHx who presented with nausea, vomiting, weakness and dark urine. Currently he is being managed in the general medical floor for the following issues: #Rhabdomyolysis: * CPK is 13,754 today so he can be discharged home today, provided that the patient agrees to have adequate hydration, and avoid exertion for next few days. He needs to repeat BEP and creatinine kinase levels in a week's time and follow up with his primary care physician. He agrees to the plan and is being discharged to home today. Prescriptions have been handed over to the patient for blood test. #EBONI: Resolved #Transaminitis: Hepatitis panel is negatieve, Possible cause of transaminitis is Rhabdomyolysis. Currently is trending down. #Nicotine dependence: * Nicotine patch 21 mg #Methadone dependence * Methadone dose of 90 mg daily confirmed via APT foundation * EKG to rule out QTC prolongation given chronic methadone, no signs of LVH or QTc prolongation in EKG #High BP: Patient's blood pressure was ranging in the high range, with systolic and 170s, possibly secondary to high amount of IV fluids, requiring amlodipine by mouth once last night. Patient has been suggested to get his blood pressure checked with his primary care physician and may or may not require blood pressure medications then onwards. He understands the situation and agrees to the plan. Diet: Regular diet DVT PPx: HSQ and ALPs CODE: FULL CODE Problem List: 1. Rhabdomyolysis 2. EBONI (acute kidney injury) 3. Transaminitis 4. Nicotine dependence 5. High blood pressure 6. Methadone dependence Pain Ratin Pain Location: - Pain Goal: Remain pain free Pain Plan: - Tomorrow's Labs & Rationales: - KANCHAN MATHEW,SANTY 03/10/17 1121: Attending MD Review Statement Attending Statement Attending MD Statement: examined this patient, discuss w/resident/PA/BUSINESS AFFAIRS MANAGER, agreed w/resident/PA/BUSINESS AFFAIRS MANAGER, reviewed EMR data (avail), discussed with nursing, discussed with case mgmt, amended to note Attending Assessment/Plan: Patient seen and examined, feeling overall much better. CK levels have gone down to 13,000. Blood pressure was high overnight therefore he received Norvasc. He does not getting any diagnosis of hypertension. Patient is otherwise medically stable for discharge home today. Will repeat his CPK level in a week. Patient to follow with her primary care doctor and we will refer him to Dr. Bose. I educated him about the fact that he should be hydrating himself out. I also told him that he should keep an eye on the blood pressure and make sure that his blood pressure gets checked at primary care doctor's office and gets addressed.
== END 2017-03-10 12:20 | DRG 469 ==
LOC: ERH 16:59 → 2NB 21:00 → ERHI 21:00 → 2NB 21:00 → EDBEDREQ 21:41 → 2NB 03-06 01:31 → ENPENDDIS 03-10 11:07 → 2NB 03-10 12:20
PROVIDERS: Emergency Medicine; Preventive Medicine Public Health & General Preventive Medicine; ADMIT Internal Medicine
DX: N17.9 Acute kidney failure, unspecified (principal); M62.82 Rhabdomyolysis; F17.210 Nicotine dependence, cigarettes, uncomplicated; R74.0 Nonspecific elevation of levels of transaminase and lactic acid dehydrogenase [LDH]; E87.1 Hypo-osmolality and hyponatremia; F11.20 Opioid dependence, uncomplicated; R03.0 Elevated blood-pressure reading, without diagnosis of hypertension; E86.0 Dehydration; F12.10 Cannabis abuse, uncomplicated; F13.10 Sedative, hypnotic or anxiolytic abuse, uncomplicated
CPT/HCPCS: 2NBSP; 84133; 84300; ERO; 36415; 80307; 81001; 82436; 82570; 93005; 93010; 96374; G0480; J1644; J2405